=== PATIENT | male | born 1980 | race African-American/Black ===

== ENCOUNTER → 2016-06-05 | Outpatient (CLI) | payer OTHER | LOC: RAD 09:29 | PROVIDERS: ATTEND Orthopaedic Surgery | DX: Z01.810 Encounter for preprocedural cardiovascular examination (principal); Z01.818 Encounter for other preprocedural examination; Z01.811 Encounter for preprocedural respiratory examination | CPT/HCPCS: 71020 ==

== ENCOUNTER 2016-06-12 07:34 | Day surgery (SDC) | payer OTHER ==
[2016-06-05 10:04] LABS: HEMATOCRIT 45.6 % (37.9-51.0); HEMOGLOBIN 14.5 g/dL (13.5-17.0); HGB HCT DIFFERENCE -2.1; MEAN CORPUSCULAR HEMOGLOBIN 27.4 pg (27.0-33.4); MEAN CORPUSCULAR HGB CONC 31.9 g/dL (32.0-36.0); MEAN CORPUSCULAR VOLUME 86 fl (80-97); RED BLOOD COUNT 5.29 10^6/uL (4.35-5.55); RED CELL DISTRIBUTION WIDTH 14.6 % (11.5-14.0); WHITE BLOOD COUNT 4.2 10^3/uL (4.0-10.5)
[2016-06-05 10:23] LABS: APPEARANCE,URINE CLEAR; BILIRUBIN,URINE NEGATIVE (NEGATIVE); GLUCOSE, URINE NEGATIVE (NEGATIVE); KETONES,URINE NEGATIVE (NEGATIVE); LEUKOCYTE ESTERASE,URINE NEGATIVE (NEGATIVE); NITRITE,URINE NEGATIVE (NEGATIVE); PROTEIN,URINE NEGATIVE (NEGATIVE); URINE SPECIFIC GRAVITY 1.019; UROBILINOGEN,URINE NEGATIVE mg/dL (<2.0)
[2016-06-05 10:45] LABS: ANION GAP 12 (5-19); BLOOD UREA NITROGEN 14 mg/dL (7-20); CALCIUM 9.8 mg/dL (8.4-10.2); CARBON DIOXIDE 30 mmol/L (22-30); CHLORIDE 102 mmol/L (98-107); GLUCOSE 95 mg/dL (75-110); POTASSIUM 4.5 mmol/L (3.6-5.0); SODIUM 143.5 mmol/L (137-145)
--- NOTE | 2016-06-05 17:00 | EKG REPORT ---
SEVERITY:- OTHERWISE NORMAL ECG - SINUS BRADYCARDIA ST ELEV, PROBABLE NORMAL EARLY REPOL PATTERN : Confirmed by: Holly Kurtz MD 05-Jun-2016 16:59:27
[~2016-06-12 07:34] MED LIST: CEFAZOLIN 2 GM/D5W RTU 2 GM/50 ML RTUPB IV PRN; LIDOCAINE 0.5% INJ-PF (5 MG/ML) 50 ML SDV INJ PRN; NORMAL SALINE 1000 ML 1,000 ML IV PRN
[2016-06-12] MEDS ORDERED: BUPIVACAINE HCL 0.5 % INJ/PF 30 ML SDV ONE (07:48)
[2016-06-12] MEDS ORDERED: MIDAZOLAM 2 MG/2 ML INJ ONE (08:54)
[2016-06-12] MEDS ORDERED: FENTANYL CITRATE INJ/PF 100 MCG/2 ML AMPUL ONE (08:54)
[2016-06-12] MEDS ORDERED: HYDROMORPHONE HCL INJ/PF 2 MG/ML AMPULE ONE (08:54)
[2016-06-12] MEDS ORDERED: ONDANSETRON HCL INJ/PF 4 MG/2 ML SDV ONE (08:54)
[2016-06-12] MEDS ORDERED: PROPOFOL INJ 200 MG/20 ML VIAL IV ONE (08:55)
[2016-06-12] MEDS ORDERED: DIPHENHYDRAMINE HCL 50 MG/ML VIAL IV PRN (09:38)
[2016-06-12] MEDS ORDERED: FENTANYL CITRATE INJ/PF 100 MCG/2 ML AMPUL IV PRN ×3 (09:38)
[2016-06-12] MEDS ORDERED: PROMETHAZINE HCL INJ 25 MG/1 ML VIAL IV PRN (09:38)
[2016-06-12] MEDS ORDERED: MEPERIDINE HCL/PF INJ 25 MG/1 ML DISP.SYRIN IV PRN (09:38)
[2016-06-12] MEDS ORDERED: BUPIVACAINE HCL 0.5 % INJ/PF 30 ML SDV INJ ONE (11:45)
[2016-06-12] MEDS ORDERED: MORPHINE SULFATE 10 MG/ML INJ IV PRN (12:30)
[2016-06-12] MEDS ORDERED: ONDANSETRON HCL INJ/PF 4 MG/2 ML SDV IV PRN (12:30)
[2016-06-12] MEDS ORDERED: OXYCODONE-ACETAMINOPHEN 5-325 MG TABLET PO PRN (12:30)
[2016-06-12] MEDS ORDERED: MEPERIDINE HCL/PF INJ 25 MG/1 ML DISP.SYRIN ONE (12:42)
--- NOTE | 2016-06-12 12:44 | Operative Report ---
Operative Report DATE OF SURGERY: 06/12/16 PREOPERATIVE DIAGNOSIS: Stage III SLAC wrist POSTOPERATIVE DIAGNOSIS: Same OPERATION: Left Wrist Scaphoidectomy w/ 4-Corner Fusion, PIN Neurectomy SURGEON: JOE MAYERS ANESTHESIA: GA COMPLICATIONS: None ESTIMATED BLOOD LOSS: <25cc PROCEDURE: Indication for above procedure: 35-year-old male who presented to my office with left wrist pain. 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 At that point we discussed treatment options including observation versus operative intervention risks and benefits of the operative procedure were explained to the patient. Patient verbalized understanding consented for the procedure. Procedure In Detail: Patient was seen and evaluated in the preoperative holding area. The LEFT upper extremity was initialized and marked. Patient received 2g of Ancef IV for bacterial prophylaxis. Patient was taken back to the operative room where transferred to the operative table and placed under general anesthesia. Once they were adequately anesthetized a nonsterile tourniquet was placed on the upper extremity. A surgical team debriefing was performed ensuring all instrumentation was available, the surgical procedure was discussed with possible concerns reviewed. The upper extremity was prepped with chlorhexidine and alcohol and draped in a sterile fashion. A timeout was done identifying correct patient, procedure and extremity everyone in attendance agree with this and verbalized no concerns. The extremity was exsanguinated the tourniquet was inflated to 200 mmHg. A longitudinal skin incision was made just ulnar to Mariluz's tubercle in line with the second webspace. Blunt dissection was done the soft tissues the superficial radial nerve was identified and retracted from the wound. The third dorsal compartment was identified and released and the EPL tendon transposed in a radial direction. With sharp dissection I elevated the fourth dorsal compartment and entirety. Within the fourth dorsal compartment the posterior interosseous nerve was identified at the floor of the compartment and 1 cm of nerve was excised and the proximal and was coagulated with bipolar cautery. I then elevated the second dorsal compartment radially. A ulnar-based Levin type capsulotomy was made leaving remanence of the DIC/DRC to allow for later repair. Inspection was then done of the capitolunate and radiolunate articulations. There was no significant degenerative changes of the radiolunate or capitolunate articulations however there was advanced degenerative changes of the radial scaphoid articulation with loose bodies and osteophyte formation along the dorsal distal radius and along the waist of the scaphoid. Sharp dissection was done releasing the ligamentous attachments to the scaphoid proximally and distally including the scapholunate ligament and STT ligaments along with the scaphoid capitate ligament. Special precautions were taken to avoid disruption of the radioscaphocapitate ligament. The scaphoid bone was removed its entirety. On the back table my operative corporate legal assistant prepared the scaphoid to use for later autograft. I then turned my attention to 4 Corner fusion. With the use of a osteotome and rongeur the chondral surface of the capitolunate articulation was removed down to good cancellus bleeding bone. I then removed the chondral surface of the triquetrum and hamate articulation once again down to good bleeding cancellus bone. The wound was then copiously irrigated with normal saline. Utilizing a 0.062 K wire in the lunate and capitate I reduced the lunate to the capitate maintaining a neutral capitolunate angle on lateral view at appropriate translation on PA view and with the maximal amount of compression. Once this was confirmed with fluoroscopy the capitolunate articulation was secured with a 0.045 K wire. Fluoroscopy was once again obtained confirming reduction of the capitolunate articulation. Once this was confirmed I proceeded with fixation using BME eli. I measured the appropriate width of the staple from the capitate to lunate ensuring there is appropriate amount of space to allow for 2 BME eli. I determine 15 mm to be appropriate with with 10 mm depth. This was then drilled and pins placed. I used C-arm fluoroscopy confirming appropriate placement of the eli. A trough was then made between the 2 eli to allow for resection. A 15 x 10 x 10 BME staple was placed successfully compressed I capitolunate articulation. Approximately 1 cm ulnar to this a second 15 x 10 x 10 BME staple was placed further providing intercarpal compression. A third and final 15 x 10 x 10 BME staple was placed at the triquetral hamate articulation. I then obtained final fluoroscopy radiographs confirming compression of my intercarpal fusion with neutral capitolunate angle. The wound was then copiously irrigated with normal saline. The previous scaphoid was used for autograft which was compressed within the triquetral-hamate fusion site and capitolunate fusion site. I then performed passive range of motion of the radiolunate articulation patient had near full passive flexion with extension to 55 without impingement of the eli or crepitation. Patient had full radial and ulnar deviation. The previous capsulotomy was closed with interrupted 3-0 Ethibond suture. The EPL remained transposed radially but the remnant of the third dorsal compartment was loosely approximated to the fourth dorsal compartment. The tourniquet was deflated. Compression was placed for 2 minutes and any remaining peripheral vasculature was coagulated with bipolar cautery until the wound was dry. Wound was once again irrigated with saline. Subcutaneous tissues were closed with interrupted 3-0 Monocryl suture. Skin was closed with a running subcuticular 3-0 Monocryl reinforced with Dermabond and Steri-Strips. 20 mL of 0.5% Marcaine without epinephrine was injected for postoperative pain control. Wound was dressed with 4 x 4's cast padding and patient was placed in a well-padded volar plaster splint. Sponge counts, instrument counts, needle counts counts were correct. Patient was then awoken from anesthesia. Transferred from the operating room table to the operating room stretcher. There was no intraoperative complications patient tolerated procedure well stable to PACU. Postoperative plan: Patient will follow-up in the office in 10-14 days which point we will proceed with a short arm cast. Patient will continue the cast for 6 weeks until fusion is confirmed. We will obtain radiographs at follow-up visit.
--- NOTE | 2016-06-12 12:46 | PDOC DISCHARGE SUMMARY ---
Discharge Summary (SDC) - Discharge Final Diagnosis: Right Stage III SLAC Wrist Date of Surgery: 06/12/16 Discharge Date: 06/12/16 Condition: Good Treatment or Instructions: Schedule Follow Up w/ Dr. Kenneth Chambers @ [facility] to be seen in 10-14 days or as scheduled [place]: [place]: [place]: Keep splint clean/dry/intact. Ice and elevate May begin finger range of motion attempting to make full fist. Stool softener of choice when on pain medication. Prescriptions: Oxycodone HCl/Acetaminophen [Percocet 5-325 mg Tablet] 1 - 2 tab PO ASDIR PRN # 55 tablet PRN Reason: Discharge Diet: As Tolerated Respiratory Treatments at Home: Deep Breathing/Coughing, Incentive Spirometer Discharge Activity: No Lifting Over 10 Pounds, No Lifting/Push/Pulling Report the Following to Your Physician Immediately: Increase in Pain, Fever over 101 Degrees, Unusual Bleeding, Redness, Swelling, Warmth, Increased Soreness, Drainage-Foul Smelling, Numbness, Tingling Sensation
[2016-06-12] MEDS ORDERED: ONDANSETRON 4 MG TAB.RAPDIS ONE (15:04)
[2016-06-12 15:28] VITALS: BP 121/65
== END 2016-06-12 15:20 | disposition home or self-care (01) ==
LOC: OROUT 07:34
PROVIDERS: ATTEND Orthopaedic Surgery
PROC: 01B64ZZ Excision of Radial Nerve, Percutaneous Endoscopic Approach (ICD-10-PCS; 2016-06-12)
PROC: 0PTN0ZZ Resection of Left Carpal, Open Approach (ICD-10-PCS; principal; 2016-06-12 09:00)
DX: M19.132 Post-traumatic osteoarthritis, left wrist (principal)
CPT/HCPCS: 93005; 36415; 85027; 80048; 81001; 73100; 93010; 25210; 64772; C1769; C1713; J2250; S0119; J3010; J2175; J1170; J2405; J2704; J0690; 01830